=== PATIENT | female | born 1985 | race Caucasian/White ===

== ENCOUNTER 2021-04-15 18:07 | Emergency (ER) | payer OTHER, SELFPAY ==
[2021-04-15 18:17] VITALS: BP 111/64; PULSE 96; RESP 18; TEMP 37.1; O2SAT 98
--- NOTE | 2021-04-15 18:26 | ED.URI ---
HPI - URI/Sore Throat General Chief Complaint: Upper Respiratory Infection Stated Complaint: sore throat Source: patient History of Present Illness HPI Narrative: Patient is a 36-year-old female who presents complaining of sore throat and runny nose x1 day. Patient denies fever, cough, or shortness of breath. Patient is vaccinated for Covid x2. Patient works in a daycare. She denies known Covid exposure. She denies taking vihs-rhc-sclyzzw medications prior to arrival. Patient has a significant cardiac history. MD elicited complaint: sore throat Related Data Home Medications Medication Instructions Recorded Confirmed L. acidophilus-L. rhamnosus 1 cap PO DAILY 04/15/21 04/15/21 [Probiotic] aspirin [Adult Aspirin] 324 mg PO DAILY 04/15/21 04/15/21 multivitamin [Daily Multivitamin] 1 tablet PO DAILY 04/15/21 04/15/21 Allergies Allergy/AdvReac Type Severity Reaction Status Date / Time ondansetron Allergy Mild FACIAL Verified 04/15/21 18:31 ITCHING tetanus toxoid, adsorbed AdvReac Intermediate ARM Verified 04/15/21 18:31 SWELLING AND PAIN Review of Systems Review of Systems: CONSTITUTIONAL: Denies fever, chills, or sweats. EYES: Denies visual changes, redness, or discharge. ENT: Reports rhinorrhea and sore throat CARDIOVASCULAR: Denies chest pain, palpitations, or edema. RESPIRATORY: Denies cough or dyspnea. GASTROINTESTINAL: Denies abdominal pain, nausea, vomiting, or diarrhea. GENITOURINARY: Denies dysuria or hematuria. SKIN: Denies rash or itching. MUSCULOSKELETAL: Denies back pain, joint pain, or myalgia. NEUROLOGIC: Denies headache, numbness, dizziness, or weakness. PSYCHIATRIC: Denies anxiety or depression. [facility] Past Medical History Medical History (Updated 04/15/21 @ 18:36 by JOHANNY Gr) Fallot tetralogy Kidney stone Ovarian cyst Surgical History Surgical History (Updated 04/15/21 @ 18:30 by JOHANNY Gr) H/O heart surgery As an infant and multiple other times History of artificial heart valve History of endometrial ablation Social History Social History (Updated 04/15/21 @ 18:30 by JOHANNY Gr) Smoking status: Never smoker Alcohol intake: never Substance use: never Living arrangements: with family Occupation/Education: occupation Gender identity (if verbalized by the patient): Female Comments At the time of signature, I have reviewed and agree with nursing past medical, surgical, social, and family history unless otherwise noted. Please see nursing chart for further information. There is no relevant family history pertinent to the presenting complaint. Exam Narrative: GENERAL: Well-appearing, well-nourished, and in no acute distress. HEAD: Normocephalic, atraumatic. EYES: EOMI. No redness or drainage. ENT: Mucous membranes pink and moist. Nares clear. No rhinorrhea. Throat with moderate erythema and edema, and large amount of exudate. Uvula midline. NECK: AROM. Supple. Positive cervical lymphadenopathy. CHEST: No respiratory distress. HEART: Regular rate and rhythm. EXTREMITIES: Normal range of motion. NEURO: No focal deficits. Alert and oriented x3. Gait steady. PSYCH: Normal affect. No signs of depression or anxiety. Course Vital Signs Vital signs: Vital Signs Temperature 37.1 C 04/15/21 18:17 Pulse Rate 96 04/15/21 18:17 Respiratory Rate 18 04/15/21 18:17 Blood Pressure 111/64 04/15/21 18:17 Pulse Oximetry 98 04/15/21 18:17 Temperature 37.1 C 04/15/21 18:17 Pulse Rate 96 04/15/21 18:17 Respiratory Rate 18 04/15/21 18:17 Blood Pressure 111/64 04/15/21 18:17 Pulse Oximetry 98 04/15/21 18:17 Reviewed MDM - URI/Sore Throat MDM Narrative Medical decision making narrative: Patient's rapid strep is negative, rapid Covid negative. Patient's throat shows significant erythema, edema and exudate. Patient has significant cardiac history and will treat with antibiotics for ton
[2021-04-17 20:20] LABS: SARS-CoV-2 RNA PCR Negative
== END 2021-04-15 19:10 | disposition home or self-care (01) ==
PROVIDERS: Emergency Provider Nurse Practitioner; PCP Internal Medicine
DX: J03.90 Acute tonsillitis, unspecified (principal); Z20.822 Contact with and (suspected) exposure to COVID-19
CPT/HCPCS: 87081; 87426; 87880; 99203; C9803; G0463; U0003; U0005

== ENCOUNTER 2022-05-06 17:26 | Emergency (ER) | payer OTHER, SELFPAY ==
[2022-05-06 17:31] VITALS: BP 112/61; PULSE 76; RESP 16; TEMP 36.5; O2SAT 98
--- NOTE | 2022-05-06 17:44 | ED.SKABFB ---
HPI - Skin/Abscess/Foreign Bdy General Chief complaint: Skin/Abscess/Foreign Body Stated complaint: Insect Bite Time Seen by Provider: 05/06/22 17:45 Source: patient, RN notes reviewed and old records reviewed Mode of arrival: ambulatory Limitations: no limitations History of Present Illness HPI narrative: 37-year-old female who presents to [facility] with complaints of red raised tissue to the medial side of her right foot unsure if she was bitten by something but noticed redness this morning to area. Patient reports that as the day has progressed she has noticed increased swelling and redness with some itching. Patient reports that she does have some increased discomfort to right foot with ambulation. MD complaint: rash Onset (ago): day(s) (this morning) Severity scale (1-10): 2 Related Data Allergies Allergy/AdvReac Type Severity Reaction Status Date / Time ondansetron Allergy Mild FACIAL Verified 05/06/22 18:00 ITCHING tetanus toxoid, adsorbed AdvReac Intermediate ARM Verified 05/06/22 18:00 SWELLING AND PAIN Review of Systems Review of Systems: CONSTITUTIONAL: Denies fever, chills, or sweats. CARDIOVASCULAR: Denies chest pain, palpitations, or edema. RESPIRATORY: Denies cough or dyspnea. SKIN: Reports redness swelling to right medial aspect of foot MUSCULOSKELETAL: Denies joint pain or myalgia. NEUROLOGIC: Denies headache, numbness, or weakness. All systems reviewed & are unremarkable except as noted in HPI and below PMFSH Past Medical History Medical History (Updated 05/13/22 @ 10:18 by Dianna Vance NP) Fallot tetralogy Kidney stone Ovarian cyst Surgical History Surgical History (Updated 05/13/22 @ 10:26 by Dianna Vance NP) H/O heart surgery As an infant and multiple other times History of artificial heart valve pulmonary heart valve replaced History of endometrial ablation Social History Social History Smoking status: Never smoker Alcohol intake: never Substance use: never Gender identity (if verbalized by the patient): Female Comments At time of signature, agree with nursing past medical, surgical, social and family history. There is no relevant family history pertinent to the presenting complaint Exam Narrative: GENERAL: Well-appearing, well-nourished, and in no acute distress. HEAD: Normocephalic, atraumatic. EYES: PERRLA, conjunctivae clear, and EOMI. ENT: Mucous membranes moist. Oropharynx without edema, erythema or lesions. NECK: Supple. No lymphadenopathy CHEST: Clear to auscultation. No respiratory distress. HEART: Regular rate and rhythm. SKIN: Warm, dry.? Patches of erythema and edema small red raised area to medial aspect of right foot NEURO:? Alert and oriented x3. PSYCH: Normal mood and affect Course Course Emergency Course: Patient is aware of diagnosis, understands and agrees to treatment plan.? Anticipatory guidance given.? Patient agrees to follow-up as directed and is aware of reasons to seek care at the emergency department. Portions of this record may have been created with voice recognition software Level of Care: Express Care Visit Vital Signs Vital signs: Vital Signs Temperature 36.5 C 05/06/22 17:31 Pulse Rate 76 05/06/22 17:31 Respiratory Rate 16 05/06/22 17:31 Blood Pressure 112/61 05/06/22 17:31 Pulse Oximetry 98 05/06/22 17:31 Oxygen Delivery Room Air 05/06/22 17:31 Temperature 36.5 C 05/06/22 17:31 Pulse Rate 76 05/06/22 17:31 Respiratory Rate 16 05/06/22 17:31 Blood Pressure 112/61 05/06/22 17:31 Pulse Oximetry 98 05/06/22 17:31 Oxygen Delivery Room Air 05/06/22 17:31 Reviewed MDM - Skin/Abscess/Foreign Bdy MDM Narrative Medical decision making narrative: Does not appear at this time to be erythema multiforme, bullous, SJS, TEN; no evidence at this time to suggest RMSF, endocarditis or Lyme dis
== END 2022-05-06 18:08 | disposition home or self-care (01) ==
PROVIDERS: Emergency Provider Registered Nurse
DX: L03.115 Cellulitis of right lower limb (principal)
CPT/HCPCS: 99213; G0463

== ENCOUNTER 2023-06-24 10:11 | Emergency (ER) | payer OTHER, SELFPAY ==
[2023-06-24 10:38] VITALS: BP 123/64; PULSE 97; RESP 20; TEMP 36.6; O2SAT 95
--- NOTE | 2023-06-24 11:00 | ED.GENADULT ---
HPI - General Adult General Chief complaint: Upper Respiratory Infection Stated complaint: Cough, Congestion, Vomiting Source: patient, RN notes reviewed and old records reviewed Mode of arrival: ambulatory Limitations: no limitations History of Present Illness HPI narrative: 38-year-old female presents to [facility] with complaints of productive cough, congestion, myalgia for about 2 weeks. Patient has not taken any eltm-wgn-zihovqu medications. Patient denies chest pain, dizziness, weakness, shortness of breath. MD complaint: Cough/congestion Onset (ago): week(s) (2) Related Data Home Medications Medication Instructions Recorded Confirmed azelastine 137 mcg (0.1 %) nasal intranasal 06/24/23 spray aerosol levothyroxine 25 mcg tablet mcg 06/24/23 sildenafil (pulm.hypertension) 20 mg 06/24/23 mg tablet Allergies Allergy/AdvReac Type Severity Reaction Status Date / Time ondansetron Allergy Mild FACIAL Verified 05/06/22 18:00 ITCHING tetanus toxoid, adsorbed AdvReac Intermediate ARM Verified 05/06/22 18:00 SWELLING AND PAIN Review of Systems Constitutional: Constitutional: Reports as per HPI, Reports body ache(s), Denies chills, Denies fatigue, Denies fever(s) and Denies headache(s) Eyes: Eyes: Reports no additional eye complaints and Denies blurry vision ENT: Reports as per HPI, Denies vertigo, Denies dizziness, Denies ear discharge, Denies otalgia, Denies facial pain, Reports headache(s), Reports nasal congestion, Reports nasal discharge, Denies sinus pain, Reports sinus pressure and Denies sore throat Cardiovascular: Cardiovascular: Reports no additional cardiovascular complaints, Denies chest pain, Denies chest pain at rest, Denies rapid heart rate and Denies dyspnea Respiratory: Respiratory: Reports no additional respiratory complaints, Reports chest congestion, Reports cough, Denies pain on inspiration, Denies pain with cough and Denies dyspnea Gastrointestinal: Gastrointestinal: Denies abdominal pain, Denies diarrhea, Denies nausea and Denies vomiting Integumentary/Breasts: Skin/Breast: Denies rash Neurologic: Reports system reviewed and no additional complaints, except as documented, Denies vertigo, Denies dizziness and Denies headache(s) Endocrine: Endocrine: Denies fatigue PMFSH Past Medical History Medical History Fallot tetralogy Kidney stone Ovarian cyst Surgical History Surgical History H/O heart surgery As an infant and multiple other times History of artificial heart valve pulmonary heart valve replaced History of endometrial ablation Social History Social History Smoking status: Never smoker Alcohol intake: never Substance use: never Living arrangements: with family Occupation/Education: occupation Gender identity (if verbalized by the patient): Female Comments At the time of my signature, I reviewed and agree with the nursing past medical, surgical, social, and family history. There is no relevant family history pertinent to the patient complaint. Exam Const: General: cooperative, healthy appearing, no acute distress and well nourished Nutritional Appearance: well nourished Orientation/consciousness: patient oriented x3 Limitations: no limitations HENMT: Head: normal to inspection and normocephalic Ears: external ears normal, TM's normal bilaterally, mastoids normal and Abnormal EAC present Face/Nose/Sinus: normal facial exam Face and sinus: normal facial exam Mouth: Yes Normal oral and palatal mucosa present, Yes oropharynx normal and Yes moist mucous membranes Throat: tonsils normal, uvula midline, posterior oropharynx abnormal erythema and no uvular edema Eyes: General: appearance normal, both eyes and all related structures Sclera: sclerae normal Pupils: Equal, rou
== END 2023-06-24 11:13 | disposition home or self-care (01) ==
PROVIDERS: Emergency Provider Registered Nurse; PCP Family Medicine
DX: J06.9 Acute upper respiratory infection, unspecified (principal); Z79.899 Other long term (current) drug therapy; Z20.822 Contact with and (suspected) exposure to COVID-19
CPT/HCPCS: 87426; 87804; 99213; C9803; G0463

== ENCOUNTER 2024-06-16 09:01 | Emergency (ER) | payer OTHER, SELFPAY ==
--- NOTE | ~2024-06-16 | XR_ITS ---
XR chest 2V Ordering provider: Jacinta Donis APRN History: 39 years Female with . Productive cough, febrile 1 week . Comparison: None. FINDINGS: MEDIASTINUM: The cardiac silhouette is slightly enlarged. Postoperative changes. Stents are seen in t he main bronchi. LUNGS: No effusions or pneumothorax. Atelectasis versus pneumonia seen in the right lung base mediall y. OTHER: No free air under the diaphragm. IMPRESSION: Right lower lobe pneumonia is seen medially. Reviewed, dictated and finalized at location [facility] [employer] [employer]
[2024-06-16 09:12] VITALS: BP 118/58; PULSE 84; RESP 20; TEMP 36.9; O2SAT 95
--- NOTE | 2024-06-16 09:36 | ED_ITS ---
HPI - URI/Sore Throat General Chief Complaint: Upper Respiratory Infection Stated Complaint: head congestion/cough Time Seen by Provider: 06/16/24 09:36 Source: patient, RN notes reviewed and old records reviewed Mode of arrival: ambulatory Limitations: no limitations History of Present Illness HPI Narrative: 39-year-old female to [facility] with complaint of productive cough, congestion for 1 week. Patient denies shortness of breath, difficulty swallowing, fever, chest pain. Patient able to tolerate fluids by mouth. Patient resting uncomfortably in exam room in no acute distress. Respirations even and nonlabored. Patient able to speak in complete sentences without difficulty. Related Data Home Medications ?Medication ?Instructions ?Recorded ?Confirmed ?Last Taken ?Type levothyroxine 25 mcg tablet 25 mcg PO DAILY 06/24/23 06/16/24 Unknown History empagliflozin 10 mg tablet mg 06/16/24 Unknown History (Jardiance) Allergies Allergy/AdvReac Type Severity Reaction Status Date / Time diltiazem Allergy Intermediate RASH Verified 06/16/24 09:37 ondansetron Allergy Mild FACIAL Verified 06/16/24 09:37 ITCHING tetanus toxoid, adsorbed AdvReac Intermediate ARM Verified 06/16/24 09:37 SWELLING AND PAIN Review of Systems Review of Systems: All systems reviewed & are unremarkable except as noted in HPI and below Constitutional: Constitutional: Reports no additional constitutional complaints Eyes: Eyes: Reports no additional eye complaints ENT: Reports as per HPI and Reports nasal congestion Cardiovascular: Cardiovascular: Reports no additional cardiovascular complaints, Denies chest pain and Denies dyspnea Respiratory: Respiratory: Reports as per HPI, Reports change in phlegm color, Reports chest congestion, Reports cough and Denies dyspnea Musculoskeletal: Musculoskeletal: Reports no additional musculoskeletal complaints Neurologic: Reports system reviewed and no additional complaints, except as documented Psychiatric: Psychiatric: Reports no additional psychiatric complaints [facility] Past Medical History Medical History Kidney stone Fallot tetralogy Ovarian cyst Surgical History Surgical History History of artificial heart valve pulmonary heart valve replaced H/O heart surgery As an and multiple other times History of endometrial ablation Social History Social History Smoking status: Never smoker Alcohol intake: never Substance use: never Living arrangements: with family Occupation/Education: occupation Gender identity (if verbalized by the patient): Female Comments At the time of my signature, I reviewed and agree with the nursing past medical, surgical, social, and family history. There is no relevant family history pertinent to the patient complaint. Exam Const: General: cooperative, no acute distress, alert, ill appearing acutely, tired appearing, uncomfortable and well nourished Nutritional Appearance: well nourished Orientation/consciousness: patient oriented x3 Limitations: no limitations HENMT: Head: normal to inspection Ears: external ears normal Face/Nose/Sinus: Normal external nose present, Normal nares present, normal facial exam, No erythema and No edema Face and sinus: normal facial exam, no erythema and no edema Mouth: Yes Normal oral and palatal mucosa present Throat: posterior oropharynx abnormal erythema and postnasal drainage Eyes: General: appearance normal, both eyes and all related structures Neck: Neck: normal visual inspection, full ROM and no meningeal signs Lymphatic: no lymphadenopathy noted and no lymphedema noted Chest: Chest palpation & inspection: normal inspection of the chest Resp: Effort & Inspection: normal respiratory effort and able to speak in complete sentences Auscultation: diminished lung sounds bilateral Cardio: Jugular venous distension: no JVD Rate: regular rate Rhythm: regular rhythm Back/Spine/Pelvis: Cervical Spine: cervical ROM normal Skin: General skin exam: normal color, no rashes or lesions noted and turgor normal Neuro: General: patient oriented x3, gait normal, moves all extremities and no meningeal signs Speech: normal speech Gait exam (Neuro): Normal gait present Extrem: General: normal to inspection, full ROM and capillary refill normal Psych: Appearance: grossly normal and well kempt Course Course Emergency Course: Some parts of this dictation were generated by voice recognition software and may contain typographical and/or grammatical inaccuracies. Level of Care: Express Care Visit Vital Signs Vital signs: Vital Signs Temperature 36.9 C 06/16/24 09:12 Pulse Rate 84 06/16/24 09:12 Respiratory Rate 20 06/16/24 09:12 Blood Pressure 118/58 L 06/16/24 09:12 Pulse Oximetry 95 06/16/24 09:12 Oxygen Delivery Room Air 06/16/24 09:12 Temperature 36.9 C 06/16/24 09:12 Pulse Rate 84 06/16/24 09:12 Respiratory Rate 20 06/16/24 09:12 Blood Pressure 118/58 L 06/16/24 09:12 Pulse Oximetry 95 06/16/24 09:12 Oxygen Delivery Room Air 06/16/24 09:12 reviewed MDM - URI/Sore Throat MDM Narrative Medical decision making narrative: 39-year-old female to [facility] with complaint of productive cough, congestion for 1 week. Patient denies shortness of breath, difficulty swallowing, fever, chest pain. Patient able to tolerate fluids by mouth. Patient resting uncomfortably in exam room in no acute distress. Respirations even and nonlabored. Patient able to speak in complete sentences without difficulty. On exam, bilateral lung sounds diminished. Posterior oropharynx with postnasal drainage. Radiology impression: Right lower lobe pneumonia is seen medially. Patient is sitting comfortably in exam room nontoxic in appearance. Patient appropriate for outpatient treatment and follow-up. Discharge instructions reviewed with patient, as well as provided in writing per nursing staff. The instructions also include specific and strict return/GO TO THE ER as well as f/u information. All questions have been answered, and the patient deny any further questions with discharge and discharge plan. Some parts of this dictation were generated by voice recognition software and may contain typographical and/or grammatical inaccuracies. Differential Diagnosis Differential diagnosis: Likely upper respiratory infection, croup, otitis media, sinusitis, viral infection, bronchitis, influenza and pharyngitis Imaging Data Radiologist's impression: XR chest 2V Ordering provider: Jacinta Donis APRN History: 39 years Female with . Productive cough, febrile 1 week . Comparison: None. FINDINGS: MEDIASTINUM: The cardiac silhouette is slightly enlarged. Postoperative changes. Stents are seen in the main bronchi. LUNGS: No effusions or pneumothorax. Atelectasis versus pneumonia seen in the right lung base medially. OTHER: No free air under the diaphragm. IMPRESSION: Right lower lobe pneumonia is seen medially. Discharge Plan Discharge Clinical Impression: Pneumonia Patient Disposition: Home, Self-Care Condition: Stable Instructions: Pneumonia (ED) Additional Instructions: -Alternate Tylenol and Motrin per package directions for fever or pain. -Antihistamine medication such as Benadryl at night and Zyrtec/Claritin/Tasia during the day can help improve symptoms. -Use Flonase twice a day for 5 days then daily to help reduce the inflammation and dry up your sinuses. -You can also use Sudafed or Mucinex. Be sure to drink plenty of water with these medications at least 8 ounces with every dose and it is important to drink 8 to 10 glasses of water per day. Water is a natural decongestant -Eat and drink things that are easy to swallow, like tea or soup, or popsicles. -Oral rinses such as: Salt water gargles and/or may use topical anesthetic (eg. Chloraseptic spray) or lozenges to relieve dryness or throat pain). -Frequent hand washing or hand gang hemstitching machine operator is one of the best ways to prevent spread of infection. -Using a vaporizer or humidifier at night will also help thin secretions and help with coughing up phlegm. -Follow up with primary care provider in 2-3 days if condition is not improving; or seek ER visit if you have trouble breathing, cannot drink enough fluids, have muffled voice, difficulty opening your mouth, or severe swelling. Patient Language: Spanish Prescriptions: New azithromycin 250 mg tablet 250 mg PO DAILY Qty: 6 0RF Rx Instructions: 250 mg orally. Take TWO tablets today, then one tablet daily for 4 days. amoxicillin 875 mg tablet 875 mg PO Q12H Qty: 20 0RF albuterol sulfate 90 mcg/actuation HFA aerosol inhaler 2 puff inhalation QID PRN (Reason: shortness of breath or wheezing) Qty: 8.5 0RF prednisone 20 mg tablet 40 mg PO DAILY Qty: 10 0RF Rx Instructions: Q a.m. No Action levothyroxine 25 mcg tablet 25 mcg PO DAILY Jardiance 10 mg tablet Follow-up/Referrals: Breanna,MD Clif [Primary Care Provider] -
== END 2024-06-16 10:30 | disposition home or self-care (01) ==
PROVIDERS: Emergency Provider Nurse Practitioner Family; PCP Internal Medicine Infectious Disease
DX: J18.9 Pneumonia, unspecified organism (principal); Z95.2 Presence of prosthetic heart valve
CPT/HCPCS: 71046; 99213; G0463